=== PATIENT | female | born 1960 | race Caucasian/White ===

== ENCOUNTER 2019-10-28 09:54 | Day surgery (SDC) | payer OTHER ==
[2019-10-28 11:08] VITALS: BMI 41.7
[2019-10-28] MEDS ORDERED: ONDANSETRON 4 MG/2 ML VIAL IVPUSH PRN (12:22)
[2019-10-28] MEDS ORDERED: oxyCODONE HCL 5 MG TABLET PO PRN (12:22)
[2019-10-28] MEDS ORDERED: LACTATED RINGERS SOLUTION 1,000 ML IV SCH (12:30)
[2019-10-28] MEDS ORDERED: LIDOCAINE HCL 1%, 10 MG/ML (20ML VIAL) ONE (13:01)
[2019-10-28] MEDS ORDERED: fentaNYL CITRATE 250 MCG/5 ML VIAL ONE (13:03)
[2019-10-28] MEDS ORDERED: MIDAZOLAM HCL 2 MG/2 ML SINGLE DOSE VIAL ONE (13:03)
[2019-10-28] MEDS ORDERED: PROPOFOL 20 ML ONE (13:37)
[2019-10-28] MEDS ORDERED: ceFAZolin SODIUM 1 GM VIAL IVPB ONE (13:45)
[2019-10-28] MEDS ORDERED: LIDOCAINE HCL/PF 2% SDV 5ML VIAL ONE (13:55)
[2019-10-28] MEDS ORDERED: LIDOCAINE HCL 2% JELLY (5 ML/TUBE) ONE (13:55)
[2019-10-28] MEDS ORDERED: DEXAMETHASONE SOD PHOSPHATE 4 MG/1 ML VIAL ONE (13:55)
[2019-10-28] MEDS ORDERED: ceFAZolin SODIUM 1 GM VIAL ONE ×2 (13:56)
[2019-10-28] MEDS ORDERED: LIDOCAINE HCL 1%, 10 MG/ML (50 mL VIAL) IJ ONE (14:36)
[2019-10-28] MEDS ORDERED: ALBUTEROL SO4 8 GM HFA INHALER IH ONE (14:39)
--- NOTE | 2019-10-28 15:49 | OP ---
DATE OF OPERATION: 10/28/2019 PREOPERATIVE DIAGNOSIS: Left breast cancer. POSTOPERATIVE DIAGNOSIS: Left breast cancer. PROCEDURE: Left breast ultrasound-guided lumpectomy and sentinel node biopsy. SURGEON: Cassia Smith MD ANESTHESIA: General. ESTIMATED BLOOD LOSS: Minimal. COMPLICATIONS: None. This was a sterile procedure. INDICATION FOR PROCEDURE: Patient presented with an abnormal screening mammogram and ultrasound that noted a mass in the upper left breast. A needle biopsy showed an invasive carcinoma, and my recommendation was a lumpectomy and a central node biopsy. The procedure was discussed with all of the questions answered. PROCEDURE IN DETAIL: Patient was brought to [facility] in [place]. Taken to nuclear medicine where I injected technetium sulfur colloid as an intradermal injection in the left breast 11 to 12 o'clock periareolar location. She was then brought up to the operating room, and after induction of general anesthesia and IV antibiotics, intraoperative ultrasound performed to localize the mass in the left breast 11 to 12 o'clock location 8 cm from the nipple using a Kopans wire. Images were recorded, 2.5 mL of Methylene blue diluted with 2.5 mL of injectable saline was then injected by me into the left subaerolar plexus and breast was massaged for 5 minutes. The left breast and axilla then were prepped and draped in the usual sterile fashion. A 4-cm incision was made in the left axilla, carried down through the clavipectoral fascia to identify 4 sentinel lymph nodes. The 1st one was blue and hot, but the 2nd one was the largest, most dominant. It was also blue and hot. The 3rd was blue but not hot, and the 4th was hot and blue. These were all sent to Pathology for permanent section. There was no other blue dye radioactivity or pathologic feeling lymph node in the left axilla; therefore, once hemostasis was assured, the left breast lumpectomy was performed. An ellipse of skin was taken over the palpable mass in the left breast 12 o'clock location, and the wire was used as a guide to get down to the area. This was excised en bloc down posteriorly to the pectoralis muscle tagged with a long stitch lateral, short stitch superior. Grossly, I felt I was around the mass with normal breast tissue around it. This was sent to Pathology for permanent section. Hemostasis was assured with electrocautery. The parenchyma was approximated with interrupted 2-0 Vicryl, skin approximated with interrupted 3-0 Vicryl and running 4-0 Prolene. A sterile dressing with Steri-Strips, Tegaderm was applied. The axillary incision was also closed in a routine fashion with interrupted 0 Vicryl, running 4-0 Prolene. A sterile dressing with Tegaderm, 4 x 4 was applied. She tolerated procedure well, was extubated on the operating room table, taken to recovery in good condition. Deepthi [id number]
[2019-10-28] MEDS ORDERED: ONDANSETRON 4 MG/2 ML VIAL ONE (16:36)
[2019-10-28 18:29] VITALS: BP 137/83; PULSE 81; TEMP 97.7
--- NOTE | 2019-11-04 09:47 | PATH ---
Surgical Pathology Report Patient Name: NEMESIO MCWILLIAMS [facility]. Rec. #: [id number] /Age/Gender: 1960 (Age: 59) / F Account: [id number] Location: [facility] Taken: 10/28/2019 Received: 10/31/2019 Reported: 11/04/2019 Physicians: Cassia Smith M.D. Specimen(s) Received A: AXILLARY SENTINEL LYMPH NODE #1, LEFT, HOT AND BLUE B: AXILLARY SENTINEL LYMPH NODE #2, LEFT, HOT AND BLUE C: AXILLARY SENTINEL LYMPH NODE #3, LEFT, HOT NOT BLUE D: AXILLARY SENTINEL LYMPH NODE #4, LEFT, HOT AND BLUE E: LEFT BREAST LUMPECTOMY Clinical History Left breast carcinoma Final Diagnosis A. AXILLARY SENTINEL LYMPH NODE #1, LEFT, HOT AND BLUE, EXCISION: ONE LYMPH NODE NEGATIVE FOR CARCINOMA (0/1). B. AXILLARY SENTINEL LYMPH NODE #2, LEFT, HOT AND BLUE, EXCISION: ONE OF TWO LYMPH NODES, POSITIVE FOR METASTATIC CARCINOMA (MACROMETASTASIS >2 MM, 1/2). LARGEST TUMOR DEPOSIT MEASURES 2.2 CM IN GREATEST MICROSCOPIC DIMENSION. EXTRANODAL EXTENSION IDENTIFIED. C. AXILLARY SENTINEL LYMPH NODE #3, LEFT, HOT NOT BLUE, EXCISION: ONE LYMPH NODE NEGATIVE FOR CARCINOMA (0/1). D. AXILLARY SENTINEL LYMPH NODE #4, LEFT, HOT AND BLUE, EXCISION: TWO LYMPH NODES NEGATIVE FOR CARCINOMA (0/2). E. BREAST, LEFT, LUMPECTOMY: TWO (2) FOCI OF INVASIVE DUCTAL CARCINOMA, MODERATELY DIFFERENTIATED (TUBULE SCORE: 2/3, NUCLEAR GRADE: 2/3, MITOTIC SCORE: 1/3; TOTAL BRENDA SCORE: 6/9). INVASIVE CARCINOMA MEASURES 1.9 CM AND 6.5 MM IN GREATEST MICROSCOPIC DIMENSION. DUCTAL CARCINOMA IN SITU (DCIS), CRIBRIFORM TYPE, INTERMEDIATE NUCLEAR GRADE, WITH MODERATE NECROSIS AND ASSOCIATED MICROCALCIFICATIONS, ADMIXED WITH INVASIVE CARCINOMA AND FOCALLY IN SURROUNDING BREAST TISSUE. LYMPHOVASCULAR INVASION IDENTIFIED. SURGICAL MARGINS ARE UNINVOLVED BY CARCINOMA; INVASIVE CARCINOMA IS 2 MM AND DCIS IS 2 MM FROM CLOSEST LATERAL MARGIN. REMAINDER BREAST OF PARENCHYMA SHOWS STROMAL FIBROSIS, MICROCYST, AND COLUMNAR CELL CHANGES. SKIN PRESENT AND UNINVOLVED BY CARCINOMA. PATHOLOGIC STAGE (pTNM): pT1c (m) pN1a. SEE INVASIVE CARCINOMA CASE SUMMARY BELOW. SEE COMMENT. Comment: Immunohistochemical stains performed and interpreted at [facility] show p63 and SMM-HC are negative in areas of invasive carcinoma, while retained in DCIS. Findings discussed with Dr. Smith. Positive and negative controls (internal if applicable) show appropriate results. Comments Breast Invasive Carcinoma: Surgical Pathology Case Summary (Based on AJCC TNM 8 th edition) Procedure _X_ Excision (less than total mastectomy) Specimen Laterality _X_ Left Tumor Size _X_ Greatest dimension of largest invasive focus >1 mm (millimeters): 19 mm Histologic Type _X_ Invasive carcinoma of no special type (ductal, not otherwise specified) Histologic Grade ([place] Histologic Score) Glandular (Acinar)/Tubular Differentiation _X_ Score 3 (<10% of tumor area forming glandular/tubular structures) Nuclear Pleomorphism _X_ Score 2 Mitotic Rate _X_ Score 1 Overall Grade _X_ Grade 2 (scores of 6) Tumor Focality _X_ Multiple foci of invasive carcinoma _X_ Number of foci: 2 Sizes of individual foci (millimeters): 19 mm and 6.5 mm Ductal Carcinoma In Situ (DCIS) _X_ DCIS is present in specimen _X_Negative for extensive intraductal component (EIC) Margins Invasive Carcinoma Margins _X_ Uninvolved by invasive carcinoma Distance from closest margin (millimeters): 2 mm Closest margin: Lateral DCIS Margins _X_ Uninvolved by DCIS Distance from closest margin (millimeters): 2 mm Closest margin: Lateral Regional Lymph Nodes _X_ Involved by tumor cells Number of Lymph Nodes with Macrometastases (>2 mm): 1 Number of Lymph Nodes with Micrometastases (>0.2 mm to 2 mm and/or >200 cells): 0 Number of Lymph Nodes with Isolated Tumor Cells (=0.2 mm and =200 cells): 0 Size of Largest Metastatic Deposit (millimeters): 22 mm Total Number of Lymph Nodes Examined: 6 Number of Myrtle Nodes Examined: 6 Extranodal Extension: _X_ Present Treatment Effect _X_ No known presurgical therapy Lymphovascular Invasion _X_ Present Pathologic Stage Classification (pTNM, AJCC 8th Edition) Primary Tumor (Invasive Carcinoma) (pT) _X_ pT1c: Tumor >10 mm but =20 mm in greatest dimension Regional Lymph Nodes (pN) Category (pN) _X__ pN1a: Metastases in 1 to 3 axillary lymph nodes, at least 1 metastasis larger than 2.0 mm Biomarker Studies Results of ER and SD studies performed on this specimen (block#E1) at [facility] are as follows: ER (clone [id number] mouse monoclonal antibody by [employer]): >90% nuclear staining with moderate to strong intensity (Positive). SD (clone16 mouse monoclonal antibody by [employer]): >80% nuclear staining with moderate to strong intensity (Positive). Results of Her2 (IHC) & Ki-67 studies performed on block "E1 " at [place], [place] ([id number]) are as follows: Her2 IHC (EP3 from [employer], formerly known as [id number], using [employer] Polymer Refine detection kit): 0 (Negative). Ki-67: ~5% (Low proliferative index). Positive and negative controls (internal if applicable) show appropriate results. Formalin fixation time exceeds current ASCO/CAP recommendations for ER,SD & Her2 testing (6-72 hrs). Negative results must be interpreted with caution as false negatives may occur. Cold ischemic time is within recommended guidelines/Time to formalin fixation is not given. Electronically Signed Myah Sinclair M.D. Gross Description A. Received in formalin labeled "left axillary sentinel lymph node #1," is a 1.2 x 1.2 x 1.0 cm nazario lymph node with attached fat. The specimen is serially sectioned and entirely submitted in 2 cassettes. B. Received in formalin labeled "left axillary sentinel lymph node #2," are 2 lymph nodes with attached fat measuring 0.7 x 0.6 x 0.5 cm and 2.3 x 2.1 x 1.0 cm. The specimen is entirely submitted in 5 cassettes as follows: 1-smaller bisected lymph node; 4-4-uakolkaj submitted larger lymph node. C. Received in formalin labeled "left axillary sentinel lymph node #3," is a 1.1 x 1.0 x 0.3 cm nazario lymph node. The specimen is submitted in toto in one cassette. D. Received in formalin labeled "left axillary sentinel lymph node #4," are 2 nazario lymph nodes with attached fat measuring 0.4 x 0.3 x 0.1 cm and 0.8 x 0.6 x 0.4 cm. The specimen is entirely submitted in 2 cassettes as follows: 1-smaller lymph node; 2-bisected larger lymph node. E. Received in formalin, labeled "left breast lumpectomy," is a 6.0 x 5.2 x 4.0 cm. nazario-yellow, irregular, portion of fibroadipose tissue with a needle localization wire present. There is a short suture marking the superior aspect and a long suture marking the lateral aspect, per the surgeon. The anterior surface displays a 4.4 x 1.4 cm nazario, elliptical, unremarkable portion of skin. The specimen is inked as follows: Superior blue; inferior green; lateral red; medial yellow; deep black. The specimen is serially sectioned from medial to lateral. Sectioning reveals a 1.9 x 1.2 x 1.2 cm nazario, indurated mass. The mass is 0.6 cm from the superior margin, 1.2 cm from the deep margin and 1.6 cm from the inferior margin. The remaining margins appear clear of the mass. Supervisor Telephone Answering Service sections are submitted in 10 cassettes as follows: 1-full face section of mass with superior margin; 2-additional superior margin with mass; 3-deep margin with mass; 4-inferior margin with mass; 5-skin; 6-lateral margin; 7-medial margin. Additional cassettes are submitted as follows: E8-fibrous tissue between tumor and lateral margin; [id number]-anatbjsin lateral margin. Total formalin fixation time: Approximately 74 hours 10/31/201910/31/2019
== END 2019-10-28 17:50 | disposition home or self-care (01) ==
LOC: JASU-SURG 09:54
PROVIDERS: ATTEND Surgery
PROC: 0HBU0ZZ Excision of Left Breast, Open Approach (ICD-10-PCS; principal; 2019-10-28 12:00)
PROC: 07B60ZX Excision of Left Axillary Lymphatic, Open Approach, Diagnostic (ICD-10-PCS; 2019-10-28 12:00)
DX: C50.912 Malignant neoplasm of unspecified site of left female breast (principal)
CPT/HCPCS: 78195-TC; 88307-TC; 88341-TC; 88342-TC; 94760; A9541